=== PATIENT | female | born 1925 | race Asian ===

== ENCOUNTER → 2016-04-27 | Outpatient (CLI) | payer MEDICARE, OTHER ==
[~2016-04-27] MED LIST: AMLO10TA55 GT; ASPI-556 PO; ATOR10TA69 GT; ERGO2000 PO; LANS15CA5 GT; LISI40TA4 GT; METF500T4 PO; METO100T5 GT; MULT9LIQ6 GT; NITR25OR3 PO; ONDA4SOL2 PO; PREG25 PO; SERT25TA GT; TRAM50TA4 PO; WARF2.5 GT
== END | disposition home or self-care (01) ==
LOC: RADPV 14:54
PROVIDERS: ATTEND Internal Medicine
DX: I51.7 Cardiomegaly (principal); I70.0 Atherosclerosis of aorta
CPT/HCPCS: 71020